=== PATIENT | female | born 1970 | race Caucasian/White ===

== ENCOUNTER 2017-11-09 07:01 | Emergency (ER) | payer OTHER ==
[2017-11-09 07:15] VITALS: BP 148/85
[2017-11-09] MEDS ORDERED: Ketorolac INJ* 60 MG/2 ML VIAL IM ONE (07:26)
--- NOTE | 2017-11-09 08:46 | RAD ---
Indication: Pain and popping at the LEFT shoulder following lifting injury November 08, 2017. Comparison: No relevant prior exams available on the [facility] PACS for comparison. Technique: Internal rotation AP, external rotation Grashey, scapular Y, axillary views LEFT shoulder Report: Normal acromioclavicular and glenohumeral joint alignment. Negative for fracture. Mild osteophytosis, subchondral sclerosis, and subchondral cystic change at the acromioclavicular joint. Tiny focus of calcific tendinopathy at the level of the infraspinatus tendon on the internal rotation view. Unremarkable soft tissue contours. IMPRESSION: 1. Mild AC joint osteoarthritis. 2. Small focus of calcific tendinopathy at the infraspinatus tendon level.
--- NOTE | 2017-11-09 09:15 | UC ---
Robert Merida Angela, scribed for Saundra Vela MD on 11/09/17 at 0724 . Upper Extremity HPI - HPI Summary HPI Summary: This pt is a 47 y/o female presenting to [facility] c/o left shoulder pain since yesterday. Pt was lifting a TV with her left arm left shoulder and she reports she heard it popped. She states her left shoulder was painful immediately after she heard the pop. Denies hand, wrist, or neck pain. Her pain is exacerbated with movement and lifting left arm. Her pain is alleviated with rest. She denies nausea, vomiting, SOB, chest pain. Pt has not taken any antiinflammatories. PCP: [facility] in [place]. Pt was diagnosed with Lyme disease 8 years ago, currently suffers from chronic lyme disease. She is not on any antibiotics currently. Her symptoms include extreme pain in arms and legs, fatigue, dizziness. She takes vitamin B and stevia. - History of Current Complaint Chief Complaint: UCUpperExtremity Stated Complaint: LEFT SHOULDER PAIN Time Seen by Provider: 11/09/17 07:15 Hx Obtained From: Patient Hx Last Menstrual Period: 10/12/17 Onset/Duration: Lasting Days - 1, Still Present Pain Intensity: 2 Pain Scale Used: 0-10 Numeric Location Of Pain: Is Discrete @ - left shoulder Aggravating Factor(s): Movement, Lifting Alleviating Factor(s): Rest Associated Signs And Symptoms: Negative: Weakness, Numbness/Tingling - Allergies/Home Medications Allergies/Adverse Reactions: Allergies Allergy/AdvReac Type Severity Reaction Status Date / Time [place] Allergy Severe Hives Verified 11/09/17 07:15 PMH/Surg Hx/FS Hx/Imm Hx - Additional Past Medical History Additional PMH: PMHx: lyme disease, fibromyalgia Other Endocrine History: DENIES: diabetes - Surgical History Surgical History: Yes Surgery Procedure, Year, and Place: tubal ligation - Family History Known Family History: Positive: Diabetes Negative: Hypertension - Social History Occupation: Employed Full-time - works in daycare Alcohol Use: Occasionally Substance Use Type: None Smoking Status (MU): Never Smoked Tobacco - Immunization History Most Recent Influenza Vaccination: NOT UTD Review of Systems Constitutional: Negative Skin: Negative Eyes: Negative ENT: Negative Respiratory: Negative Cardiovascular: Negative Motor: Negative Musculoskeletal: Other: - left shoulder pain Neurological: Negative All Other Systems Reviewed And Are Negative: Yes Physical Exam Triage Information Reviewed: Yes Appearance: Well-Nourished Vital Signs: Initial Vital Signs Temp 98.1 F 11/09/17 07:06 Pulse 82 11/09/17 07:06 Resp 16 11/09/17 07:06 BP 148/85 11/09/17 07:06 Pulse Ox 99 11/09/17 07:06 Vital Signs Reviewed: Yes Eye Exam: Normal ENT Exam: Normal Neck exam: Normal Neck: Positive: Supple, Nontender Respiratory Exam: Normal, Other - no dyspnea, no tachypnea, normal respiratory rate Cardiovascular Exam: Normal Cardiovascular: Positive: Other: - Heart rate regular, good general skin color, good capillary refill Abdominal Exam: Normal Abdomen Description: Positive: Nontender, No Organomegaly, Soft Bowel Sounds: Positive: Present Musculoskeletal Exam: Other - Painful to abduct. Pain prohibitive at 90deg active abduct. Passive to approx 100deg. Pain "inside" shoulder, without specific point gabe tenderness identified. However, + tender inner axilla. + ax nerve sens present. Distal R / U pulses present. Distal sens present LT. Moves all fingers, strength good. Pt is RH'd. Neurological Exam: Normal Neurological: Positive: Other: - generally nonfocal. see below. Psychological Exam: Normal - conversing easily and appropriately Skin Exam: Normal Diagnostics - Radiology Left shoulder XR Xray Interpretation: No Acute Changes - IMPRESSION: 1. Mild AC joint osteoarthritis. 2. Small focus of calcific tendinopathy at the infraspinatus tendon level. Dr. Vela has reviewed this radiology report. Radiology Interpretation Completed By: Radiologist Upper Extremity Course/Dx - Course Course Of Treatment: Ketoralac 60mg IM. L shoulder sling - d/w pt (for comfort and rest). L shoulder xray -> report n/a at pt discharge (she had to go to work ). I reviewed the actual xray with the pt. 09:12 - called pt and reviewed radiology report. Reviewed tx plan / coa. Questions as posed answered to the best of my ability. Pt declines a work note. - Differential Dx/Diagnosis Provider Diagnoses: Acute L shoulder strain - consider partial rotator cuff involvement. Calcific tendonopathy Discharge - Discharge Plan Condition: Stable Disposition: HOME Prescriptions: Naproxen [Naproxen 500 mg] 500 mg PO Q12H PRN #30 tab PRN Reason: pain Patient Education Materials: Rotator Cuff Injury (ED), Calcific Tendinitis (ED) Referrals: Akin Arias MD [Medical Doctor] - No Primary Care Phys,NOPCP [Primary Care Provider] - Additional Instructions: Your blood pressure was elevated during today's visit, 148/85. Please follow up with your primary care provider in 1-2 weeks. Please follow up with your primary care provider in 1-2 weeks. Seek medical attention for worse or new problems in the meantime. Follow up withorthopedic doctor 1-2 weeks. sling as needed for comfort The documentation as recorded by the Robert pretty Angela accurately reflects the service I personally performed and the decisions made by me, Saundra Vela MD.
== END 2017-11-09 08:30 | disposition home or self-care (01) ==
LOC: UCEAST 07:01
DX: S46.812A Strain of other muscles, fascia and tendons at shoulder and upper arm level, left arm, initial encounter (principal); A69.20 Lyme disease, unspecified; M75.32 Calcific tendinitis of left shoulder; X50.9XXA Other and unspecified overexertion or strenuous movements or postures, initial encounter; Y92.9 Unspecified place or not applicable
CPT/HCPCS: 96372; 99213; G0463; J1885

== ENCOUNTER 2018-05-31 07:53 | Emergency (ER) | payer OTHER ==
[2018-05-31 08:11] VITALS: BP 157/96
--- NOTE | 2018-05-31 08:32 | UC ---
Skin Complaint HPI - HPI Summary HPI Summary: Odalys Merida, scribed for attending Jaylin Castillo MD. Pt is a 48 y/o F who presents to [facility] c/o erythema and pruritis on the right lower leg with swelling. Pt reports that on Monday (2 days ago) she was in her yard when she was bit/stung by an insect. Yesterday, the region began swelling and she took Benadryl and used Neosporin last night without improvement. Denies any pain or drainage and symptoms are worse this morning. Additionally notes fatigue which she suspects may be secondary to being on vacation. Denies any SOB or oral swelling. Reports a history of quickly progressing cellulitis 10 years ago in the right lower leg after a fractured bone. Unsure of last Tetanus shot - believes it was within the last 10 years. no h/o MRSA PMHx Lyme Disease - is not currently taking anything for it. Is not immunocompromised and does not usually get yeast infections with Abx, though reports that sometimes she can. Patient medications and allergies reviewed this visit. - History of Current Complaint [facility] Time Seen by Provider: 05/31/18 08:29 Stated Complaint: SKIN ISSUE Hx Obtained From: Patient Hx Last Menstrual Period: 05/16/2018 Onset/Duration: Lasting Days - Since yesterday, Still Present, Worse Since - This morning Skin Exposure Onset/Duration: Days Ago - Bit 2 days ago Current Severity: None Pain Intensity: 0 Pain Scale Used: 0-10 Numeric Location: Other - Right lower leg Character: Swelling, Pruritus, Redness Aggravating Factor(s): Nothing Alleviating Factor(s): Nothing Associated Signs & Symptoms: Negative: Difficulty Breathing - Allergy/Home Medications Allergies/Adverse Reactions: Allergies Allergy/AdvReac Type Severity Reaction Status Date / Time strawberry Allergy Hives Verified 05/31/18 08:06 Home Medications: Home Medications diphenhydrAMINE HCl [Benadryl Allergy 25 MG CAP] 25 mg PO Q6HR PRN 05/31/18 [ History Confirmed 05/31/18] Review of Systems Constitutional: Fatigue Skin: Other - Erythema and pruritis on the right lower leg Eyes: Negative ENT: Negative Respiratory: Negative Cardiovascular: Negative Gastrointestinal: Negative Genitourinary: Negative Motor: Negative Neurovascular: Negative Musculoskeletal: Negative Neurological: Negative Psychological: Negative All Other Systems Reviewed And Are Negative: Yes - Comments Additional Review of Systems Comments: NEGATIVE: Drainage, SOB, oral swelling PMH/Surg Hx/FS Hx/Imm Hx - Additional Past Medical History Additional PMH: PMHx: Lyme Disease, fibromyalgia Negative PMHx: HTn, COPD, DM, Thyroid disease, Asthma Previously Healthy: Yes - Surgical History Surgical History: Yes Surgery Procedure, Year, and Place: tubal ligation - Family History Known Family History: Positive: Diabetes Negative: Hypertension - Social History Occupation: Employed Full-time - Day care Alcohol Use: Occasionally Substance Use Type: None Smoking Status (MU): Current Some Day Smoker - Immunization History Most Recent Influenza Vaccination: NOT UTD Most Recent Tetanus Shot: unknown Physical Exam - Summary Physical Exam Summary: Vital Signs Reviewed: Yes A+Ox3, no distress Eyes: Conjunctiva Clear ENT: Hearing grossly normal neck: supple Respiratory: Positive: No respiratory distress, No accessory muscle use Cardiovascular: skin color reflect adequate perfusion Musculoskeletal Exam: [place] x 4 without difficulty Neurological: Positive: Alert, ambulatory without difficulty Psychological: Positive: Normal Response To Family Skin: Positive: right lateral mid LE - pt with 3x3cm erythema, warmth no fluctuance + TTP small sting site in center of erythema Triage Information Reviewed: Yes Vital Signs: Initial Vital Signs Temp 99.0 F 05/31/18 08:05 Pulse 73 05/31/18 08:05 Resp 18 05/31/18 08:05 BP 157/96 05/31/18 08:05 Pulse Ox 98 05/31/18 08:05 Course/Dx - Course Course Of Treatment: Patient medications and allergies reviewed this visit. Blood pressure noted and patient informed to follow up with PCP. Patient presents with area of erythema to right lateral mid leg related to light. Patient concern for sialitis given past history of same. Suspect it's likely local reaction patient with concern. We'll prescribe Keflex. Recommend cool packs. Recommend topical Benadryl. Return precautions discussed. Patient comfortable in agreement with plan. Patient does sometimes these infections will prescribe Diflucan as needed. Patient comfortable in agreement with plan. Patient does have a primary care provider - Diagnoses Provider Diagnoses: cellulitis Discharge - Sign-Out/Discharge Documenting (check all that apply): Patient Departure - Discharge - Discharge Plan Condition: Stable Disposition: HOME Prescriptions: Cephalexin CAP* [Keflex 500 CAP*] 500 mg PO TID #30 cap Fluconazole [Diflucan 150 MG (NF)] 150 mg PO ONCE PRN #1 tab PRN Reason: vaginal yeast infection Patient Education Materials: Cellulitis (ED) Referrals: Davon Romero MD [Primary Care Provider] - Additional Instructions: - Take antibiotics as prescribed until gone - elevate your foot to help with swelling and pain - okay to take benadryl every 8 hours for itching. This medication may cause drowsiness. Do not drive, operate machinery or drink alcohol while taking this medication. If you use over the counter benadryl cream instead. This will not cause drowsiness - Avoid getting over heated - hot showers, hot tub, outside and sweating - cool packs or clothes will decrease your pain - monitor for increased infection - reddness, red streaking, odor or any other concerns -- you have been given a prescription for vaginal yeast infection - okay to take as needed - Billing Disposition and Condition Condition: STABLE Disposition: Home
== END 2018-05-31 08:55 | disposition home or self-care (01) ==
LOC: UCEAST 07:53
DX: L03.115 Cellulitis of right lower limb (principal); F17.200 Nicotine dependence, unspecified, uncomplicated; Z91.018 Allergy to other foods
CPT/HCPCS: 99212; G0463

== ENCOUNTER 2019-04-15 16:27 | Emergency (ER) | payer OTHER ==
[2019-04-15 17:44] VITALS: BP 144/91
--- NOTE | 2019-04-15 18:20 | ED ---
Lower Extremity - HPI Summary HPI Summary: 49 yr old female with right patella pain. Onset over the past three days. She states there is no swelling and she can stand on it fine, but the patient has pain mostly with flexing the knee when going down the stairs. She has no fever or chills. She has not fallen or had an injury. - History of Current Complaint Chief Complaint: UCLowerExtremity Stated Complaint: KNEE PAIN Time Seen by Provider: 04/15/19 17:44 Hx Last Menstrual Period: 04/08/2019 Pain Intensity: 8 - Allergies/Home Medications Allergies/Adverse Reactions: Allergies Allergy/AdvReac Type Severity Reaction Status Date / Time strawberry Allergy Hives Verified 04/15/19 17:36 Home Medications: Home Medications Ibuprofen [Addaprin] 600 mg PO Q8HR PRN 04/15/19 [History Confirmed 04/15/19] PMH/Surg Hx/FS Hx/Imm Hx Endocrine/Hematology History: Denies: Hx Diabetes, Hx Thyroid Disease Cardiovascular History: Denies: Hx Hypertension Respiratory History: Denies: Hx Asthma, Hx Chronic Obstructive Pulmonary Disease (COPD) GI History: Denies: Hx Ulcer - Surgical History Surgery Procedure, Year, and Place: tubal ligation Infectious Disease History: No Infectious Disease History: Denies: Hx Hepatitis, Hx Human Immunodeficiency Virus (HIV), Traveled Outside the [place] in Last 30 Days - Family History Known Family History: Positive: Diabetes Negative: Hypertension - Social History Occupation: Employed Full-time Alcohol Use: Occasionally Substance Use Type: Reports: None Smoking Status (MU): Current Some Day Smoker Review of Systems Constitutional: Negative Positive: Other - right patellar pain All Other Systems Reviewed And Are Negative: Yes Physical Exam Triage Information Reviewed: Yes Vital Signs On Initial Exam: Initial Vitals Temp Pulse Resp BP Pulse Ox 99.1 F 69 18 144/91 97 04/15/19 17:37 04/15/19 17:37 04/15/19 17:37 04/15/19 17:37 04/15/19 17:37 Vital Signs Reviewed: Yes Appearance: Positive: Well-Appearing, No Pain Distress Skin: Positive: Warm, Skin Color Reflects Adequate Perfusion Head/Face: Positive: Normal Head/Face Inspection Eyes: Positive: EOMI ENT: Positive: Pharynx normal Neck: Positive: Nontender Respiratory/Lung Sounds: Positive: Clear to Auscultation, Breath Sounds Present Cardiovascular: Positive: RRR. Negative: Murmur Abdomen Description: Negative: Distended Musculoskeletal: Positive: Strength/ROM Intact, Other - right knee without any effusion, no bruise, no redness. Range of motion is normal. No tenderness over the popliteal fossa. Her knees and legs appear symmetric without swelling. Neurological: Positive: Sensory/Motor Intact, Alert, Oriented to Person Place, Time, CN Intact II-III, Speech Normal Psychiatric: Positive: Normal Diagnostics - Vital Signs Vital Signs Temp Pulse Resp BP Pulse Ox 04/15/19 17:37 99.1 F 69 18 144/91 97 - Laboratory Lab Statement: Any lab studies that have been ordered have been reviewed, and results considered in the medical decision making process. - Radiology right knee Radiology Interpretation Completed By: Radiologist - mild patello femoral mal alignment. per rad. Lower Extremity Course/Dx - Course Course Of Treatment: 49 yr old with patellar pain. DC home. FU with orthopedics. - Diagnoses Provider Diagnoses: Pain of right patella, Hypertension Discharge - Sign-Out/Discharge Documenting (check all that apply): Patient Departure All imaging exams completed and their final reports reviewed: Yes - Discharge Plan Condition: Good Disposition: HOME Patient Education Materials: Knee Pain (ED), Hypertension (ED) Referrals: Davon Romero MD [Primary Care Provider] - 2 Days Kenia Weber MD [Medical Doctor] - 2 Days - Billing Disposition and Condition Condition: GOOD Disposition: Home
== END 2019-04-15 18:35 | disposition home or self-care (01) ==
LOC: UCEAST 16:27
DX: M25.561 Pain in right knee (principal); I10 Essential (primary) hypertension; Z91.018 Allergy to other foods; Z72.0 Tobacco use
CPT/HCPCS: 99211; G0463

== ENCOUNTER 2019-06-14 07:42 | Emergency (ER) | payer OTHER ==
[2019-06-14 07:56] VITALS: BP 138/88
--- NOTE | 2019-06-14 08:58 | UC ---
Eye Complaint HPI - HPI Summary HPI Summary: PATIENT WOKE UP YESTERDAY MORNING AND NOTICED SOME MILD RIGHT UPPER EYELID SWELLING. NO PAIN OR DRAINAGE. NO VISUAL DISTURBANCE, HEADACHE, NAUSEA. DOES NOT WEAR CONTACT LENSES. APPLIED COOL COMPRESSES YESTERDAY BUT WOKE UP TODAY WITH RIGHT UPPER EYELID EDEMA MUCH WORSE. HAD SOME CLEAR DRAINAGE UPON WAKING THAT IS NOW GONE. - History of Current Complaint Chief Complaint: UCEye Stated Complaint: EYE SWELLING Time Seen by Provider: 06/14/19 08:23 Hx Obtained From: Patient Hx Last Menstrual Period: 05/15/19 Onset/Duration: Gradual Onset, Lasting Days, Still Present Timing: Constant Severity Initially: Mild Severity Currently: Moderate Pain Intensity: 0 Pain Scale Used: 0-10 Numeric Location of Injury: Eye Lid (upper) - RIGHT Aggravating Factor(s): Nothing Alleviating Factor(s): Nothing Associated Signs And Symptoms: Positive: Swelling. Negative: Photophobia, Drainage (Purulent), Vision Impairment Bilateral, Fever - Allergies/Home Medications Allergies/Adverse Reactions: Allergies Allergy/AdvReac Type Severity Reaction Status Date / Time strawberry Allergy Hives Verified 06/14/19 07:49 PMH/Surg Hx/FS Hx/Imm Hx Previously Healthy: Yes - Surgical History Surgical History: Yes Surgery Procedure, Year, and Place: tubal ligation - Family History Known Family History: Positive: Diabetes Negative: Hypertension - Social History Alcohol Use: None Substance Use Type: None Smoking Status (MU): Never Smoked Tobacco - Immunization History Most Recent Influenza Vaccination: NOT UTD Most Recent Tetanus Shot: unknown Review of Systems All Other Systems Reviewed And Are Negative: Yes Constitutional: Positive: Negative Eyes: Positive: Other - RIGHT UPPER EYELID SWELLING. Negative: Blurred Vision, Eye Redness Respiratory: Positive: Negative Cardiovascular: Positive: Negative Gastrointestinal: Positive: Negative Physical Exam Triage Information Reviewed: Yes Appearance: Well-Appearing, No Pain Distress, Well-Nourished Vital Signs: Initial Vital Signs Temp 97.3 F 06/14/19 07:50 Pulse 66 06/14/19 07:50 Resp 16 06/14/19 07:50 BP 138/88 06/14/19 07:50 Pulse Ox 100 06/14/19 07:50 Vital Signs Reviewed: Yes Eyes: Positive: Conjunctiva Clear, Other: - PERRL, EOMI. RIGHT UPPER EYELID EDEMA. POSSIBLE DEVELOPING INTERNAL STYE. Negative: Discharge ENT: Positive: Hearing grossly normal Neck: Positive: Supple Respiratory: Positive: No respiratory distress, No accessory muscle use Cardiovascular: Positive: Pulses Normal Abdomen Description: Positive: Soft Musculoskeletal: Positive: No Edema Neurological: Positive: Alert Psychological: Positive: Age Appropriate Behavior Skin: Negative: Rashes Eye Complaint Course/Dx - Course Course Of Treatment: PT'S PRESENTATION IS MORE CONSISTENT WITH ALLERGIC RESPONSE THAN ANYTHING INFECTIOUS. WILL TREAT WITH PREDNISONE, ORAL ANTIHISTAMINES AND COOL COMPRESSES. HAVE ADVISED PATIENT THAT SHE MAY BE DEVELOPING AN INTERNAL STYE BUT THAT IT DOES NOT LOOK INFECTED AT THIS TIME. HAVE GIVEN A PRESCRIPTION FOR ERYTHROMYCIN ANTIBIOTIC OINTMENT. IF HER SYMPTOMS DO NOT IMPROVE WITH ANTIHISTAMINES AND PREDNISONE HAVE ADVISED HER TO START THE OINTMENT. FOLLOW- UP WITH AN EYE DOCTOR IF HER SYMPTOMS DO NOT IMPROVE WITH THIS TREATMENT. - Differential Dx/Diagnosis Provider Diagnosis: Blepharitis of right upper eyelid Discharge - Sign-Out/Discharge Documenting (check all that apply): Patient Departure All imaging exams completed and their final reports reviewed: No Studies - Discharge Plan Condition: Stable Disposition: HOME Prescriptions: Erythromycin OPHTH.OINT* [Ilotycin OPHTH.OINT*] 1 applic RIGHT EYE QID #1 tube predniSONE TAB* [Deltasone 20 MG TAB*] 40 mg PO DAILY #10 tab Patient Education Materials: Blepharitis (ED) Referrals: Davon Romero MD [Primary Care Provider] - If Needed Wilder Lozano MD [Medical Doctor] - If Needed Additional Instructions: THE APPEARANCE OF THE SWELLING OF YOUR EYELID IS CONSISTENT WITH AN ALLERGIC REACTION. TAKE THE PREDNISONE ONCE DAILY FOR THE NEXT 5 DAYS. I ALSO RECOMMEND YOU TAKE A DAILY ANTIHISTAMINE SUCH CLARITIN OR ZYRTEC. APPLY COOL COMPRESSES. YOU MAY BE DEVELOPING A STYE. IT DOES NOT LOOK INFECTED AT THE MOMENT HOWEVER IT MAY BECOME SO. IF YOUR SYMPTOMS DO NOT IMPROVE OVER THE NEXT 2 OR 3 DAYS WITH PREDNISONE AND ANTIHISTAMINES START THE ANTIBIOTIC OINTMENT PRESCRIBED. I RECOMMEND YOU AVOID ANY EYE MAKEUP UNTIL YOUR SYMPTOMS ARE RESOLVED. FOLLOW-UP WITH AN EYE DOCTOR IF YOUR SYMPTOMS PERSIST OR WORSEN WITH THE ABOVE TREATMENT. What is a stye? A stye is a red and painful lump on the eyelid. It happens when a small gland on the edge of the eyelid gets infected or inflamed. Styes can occur on the upper or lower eyelids. Most styes get better on their own after a few days to a week. Another word for stye is hordeolum. People sometimes get a stye confused with a different eye problem called a chalazion. A chalazion also causes a lump on the eyelid. But a stye is caused by an infection and is painful. A chalazion is not tender or painful, but it often lasts longer than a stye does. What are the symptoms of a stye? People who have a stye have a red and painful lump on the edge of their eyelid. A stye usually develops over a few days. It can look like a pimple. Styes can cause other symptoms, too, such as tearing and eyelid pain and swelling. Is there a test for a stye? No. But your doctor or nurse should be able to tell if you have a stye by doing an exam and talking with you. Is there anything I can do on my own to feel better? Yes. To ease your symptoms and help your stye get better, you can put warm, wet pressure on the stye. Wet a clean wash cloth with warm water and put it over your stye. When the wash cloth cools, reheat it with warm water and put it back over the stye. Repeat these steps for 5 to 15 minutes, and try to do this 3 to 4 times a day. You should NOT squeeze or pop your stye. Also, you should not wear eye makeup or contact lenses until your stye is all better. Should I see a doctor or nurse? See your doctor or nurse if: -Your stye doesnt go away after you treat it on your own for 1 week -Your stye gets very big, bleeds, or affects your vision -Your whole eye is red, or your whole eyelid is red and swollen -The redness or swelling spreads to your cheek or other parts of your face What treatments might my doctor use? If your stye doesnt get better or if it leads to other problems, your doctor might: -Prescribe a cream or ointment that goes in the eye and on the eyelid -Prescribe antibiotic medicines -Drain the stye Can styes be prevented? Yes. To lower your chances of getting a stye, you can: -Wash your hands before you touch your eyes -Wash your hands before you put in contact lenses and keep your contact lenses clean (if you wear contact lenses) -Take off your eye makeup each night -Not share eye makeup with other people - Billing Disposition and Condition Condition: STABLE Disposition: Home
== END 2019-06-14 08:52 | disposition home or self-care (01) ==
LOC: UCEAST 07:42
DX: H01.001 Unspecified blepharitis right upper eyelid (principal)
CPT/HCPCS: 99212; G0463